=== PATIENT | female | born 1985 | race African-American/Black ===

== ENCOUNTER 2017-08-05 14:59 | Inpatient (IN) ==
--- NOTE | 2017-08-05 17:06 | Emergency Department Note ---
Arrival - Arrival Chief Complaint: Extremity Problem Stated Complaint: right leg pain ED Nursing Triage Note: Pt c/o right upper leg pain and swelling x 1.5 wks. Mode of Arrival: Ambulatory Limitations: No Limitations Source: Patient Time Seen by Provider: 08/05/17 16:50 - History of Present Illness HPI Narrative: The patient complains of right thigh swelling and pain for the past 1/2-2 weeks. She states it is become very indurated on the lateral aspect. She says she may have had a low-grade fever at dialysis today. The patient has a cold dialysis access in her right thigh but has never had swelling or pain like this before. No nausea or vomiting. She denies any cough, rhinorrhea, sore throat or other recent illness. Allergies/Adverse Reactions: Allergies Allergy/AdvReac Type Severity Reaction Status Date / Time povidone-iodine Allergy RASH Verified 07/13/17 14:25 [From Betadine] soap [From Betadine] Allergy RASH Verified 07/13/17 14:25 tramadol [From Ultram] AdvReac Abdominal Verified 07/13/17 14:25 Pain Home Medications: Home Medications Medication Instructions Recorded Confirmed Type cloNIDine TAB [Catapres Tab] 0.3 mg PO TID 05/11/15 07/13/17 History Calcium Acetate [Phoslo] 2,001 mg PO TID W/MEALS 05/14/15 07/13/17 History ALPRAZolam [Alprazolam] 1 mg PO BID 07/27/16 07/13/17 History Calcium Acetate [Calcium Acetate] 1,334 mg PO WITH SNACKS 07/13/17 07/13/17 History Carvedilol [Coreg] 6.25 mg PO BID 07/13/17 07/13/17 History Ciprofloxacin Tab [Cipro Tab] 500 mg PO Q12HR 10 Days 07/13/17 Rx Quetiapine Fumarate 100 mg PO BEDTIME 07/13/17 07/13/17 History metroNIDAZOLE TAB [Flagyl Tab] 500 mg PO TID 10 Days 07/13/17 Rx Review of System - Review of System 12 point system: reviewed and no additional remarkable complaints except as stated - Review of System Constitutional: Present: fever (Possible "low-grade") Head/Ears/Nose/Throat: Absent: nasal drainage, sore throat Respiratory: Absent: cough Cardiovascular: Absent: chest pain Gastrointestinal: Absent: abdominal pain, nausea, vomiting Musculoskeletal: Present: leg pain Skin: Present: change in color Medical,Surgical,& Family Hx - Medical History Cardio: History of: Hypertension Psychological: History of: Anxiety Disorders Renal: History of: Dialysis (MWF), Renal Failure Gastrointestinal: History of: Gastrointestinal Bleed, GI Problems (Pain after eating and food not digesting) Hematology: History of: Anemia - Surgical History HEENT Surgeries: Surgical HX of: Thyroid Surgery, Tonsilectomy & Adenoidectomy Abdominal Surgeries: Surgical HX of: Abdominal Surgery (PT STATES " HAD 1 FT INTESTINES TAKEN OUT IN 2013"), Cholecystectomy, Colonoscopy Orthopedic Surgeries: Surgical HX of;: Implanted Devices (Left arm FISTULA), Orthopedic Surgery (" TENDON REPAIR 2009 1ST SURGERY, LAST SURGERY 2012") - Family History Family History: Reports;: Family Diabetes (MOTHER, FATHER, BROTHER), Family Hypertension (FATHER) - Social History Smoking Status: Current every day smoker Exam Physical Examination: GENERAL: Alert. No acute distress. HEENT: Normocephalic and atraumatic. There is no nasal drainage. No pharyngeal erythema or exudate. NECK: Normal inspection. Supple. No lymphadenopathy or meningismus. LUNGS: No respiratory distress. Clear to auscultation bilaterally, no wheezes, rales or rhonchi. HEART: Regular tachycardia around 120 with 1 out of 6 systolic murmur. Chest: Left upper chest dialysis catheter. No erythema, tenderness or drainage. ABDOMEN: Soft, nontender and nondistended with normoactive bowel sounds. BACK: Normal inspection. SKIN: Color normal. Warm and dry. EXTREMITIES: There is an increased diameter of the right thigh compared to the left. The lateral aspect is very tender with some induration and hyperpigmentation with scaling. There is also some tenderness anteriorly and posteriorly. There is a medial upper right thigh graft with good pulse and thrill. This is not tender or indurated. The calf is nontender or swollen. There is some scaling and hyperpigmentation of the right foot but it is distally neurovascularly intact and nontender. NEUROLOGICAL/PSYCHIATRIC: Alert and oriented -3 with normal mood and affect. Cranial nerves normal. No motor or sensory deficit. Vital Signs: Vital Signs Temperature 98.3 F 08/05/17 15:06 Pulse Rate 140 H 08/05/17 15:06 Respiratory Rate 18 08/05/17 15:06 Blood Pressure 151/81 08/05/17 15:06 O2 Sat by Pulse Oximetry 100 08/05/17 15:06 Course - Reevaluation(s) Reevaluation #1: Ultrasound shows no evidence of abscess or DVT. The patient's white count is normal and she is afebrile. There is a question of whether she was febrile at dialysis. The patient states that the dialysis nurse told her to come here because she had a fever. I believe she has cellulitis of the right thigh. I have discussed the patient with the hospitalist service who will see her and admit. Time: 20:05 Results - Labs CBC & BMP: 08/05/17 17:13 08/05/17 17:31 Lab Results: I have reviewed the patients labs Labs: Laboratory Tests 08/05/17 17:31 INR 1.1 - Impressions Ultrasound showed no evidence of DVT. No evidence of abscess but there was significant soft tissues edema in the thigh. Chest x-ray shows:1. Interval central venous catheter placement as described 2. Slight increase in the overall interstitial pattern, could not exclude some degree of underlying edema Disposition Clinical Impression: Cellulitis, Chronic kidney disease with end stage renal failure on dialysis, Anemia, Tachycardia Case discussed with: patient Disposition: Still a Patient Condition: Stable Time of Disposition: 20:05
--- NOTE | 2017-08-05 17:23 | Order Completion Report ---
See report scanned to EMR
[2017-08-05 17:44] LABS: Basophils % 0.5 % (0.0-0.8); Eosinophils # 0.3 10*3/uL (0.0-0.87); Eosinophils % 3.9 % (0.00-10.9); Hematocrit 29.8 VOL% (35.7-47.0); Hemoglobin 9.8 GM/DL (12.0-16.0); Immature Granulocytes % 0.5 %; Immature Granulocytes Absolute 0.03 #; Lymphocytes # 1.2 10*3/uL (1.4-4.0); Lymphocytes % 18.5 % (21.3-54.2); Mean Corpuscular HGB Conc 32.9 GM/DL (32-36); Mean Corpuscular Hemoglobin 31 PG (27-34); Mean Corpuscular Volume 93.7 FL (87-102); Mean Platelet Volume 11.3 FL (9.6-12.0); Monocytes # 0.6 10*3/uL (0.11-0.8); Monocytes % 9.6 % (1.7-12.7); Neutrophils # 4.3 10*3/uL (1.4-7.4); Platelet Count 149 T/CUMM (130-400); Red Blood Count 3.18 MC/CUMM (3.8-5.5); Red Cell Distribution Width 17.6 % (9.3-17.3); White Blood Count 6.4 T/CUMM (4-12)
[2017-08-05 17:54] LABS: INR 1.1; PT Patient Result 11.3 SECS
[2017-08-05 18:04] LABS: Calcium 9.1 MG/DL (8.5-10.1); Osmolality,Calculated 275.8 MOS/KG (273-304); Potassium 4.4 MMOL/L (3.5-5.1)
--- NOTE | 2017-08-05 18:46 | XRay Report ---
Portable chest Exam date: 08/05/2017 5: 17 PM Indication: Shortness of breath, cough Comparison: December 27, 2015 Findings: Cardiomediastinal contours are stable with underlying cardiomegaly. Central venous catheter placed with distal tip overlying the superior mediastinum at midline. Slight increased interstitial pattern. No acute osseous abnormalities. Visualized upper abdomen demonstrates no acute pathology. Impression: 1. Interval central venous catheter placement as described 2. Slight increase in the overall interstitial pattern, could not exclude some degree of underlying edema PROCEDURE INTERPRETED AT [facility] DEPARTMENT OF RADIOLOGY Final Report Signed by: Lc Chaney MD
--- NOTE | 2017-08-05 19:13 | Ultrasound Report ---
Exam: US venous doppler LE RT Indication: Pain and swelling Date: 08/05/2017 3:09 PM Technique: Chaney scale Doppler with color flow with spectral broadening was performed in routine fashion of the lower extremities per routine protocol Findings: The right common femoral, superficial femoral, popliteal and proximal saphenous saphenous veins are patent with normal waveform phasicity and augmentation as well as complete vessel compressibility. There is no evidence of popliteal or Jones's cyst. Dialysis catheter in place. Mild superficial edema within the right mid thigh. Impression: No evidence of deep venous thrombosis within right lower extremity Ultrasound images were captured and stored. PROCEDURE INTERPRETED AT [facility] DEPARTMENT OF RADIOLOGY Final Report Signed by: Lc Chaney MD
[2017-08-05 19:47] LABS: Hypochromasia Slight; Platelet Estimate Normal
[2017-08-05] MEDS ORDERED: CLINDAMYCIN INJ 600 MG in PREMIX 1 EACH IV STA (20:01)
[2017-08-05] MEDS ORDERED: ONDANSETRON 4 MG/2 ML VIAL IV PRN (20:40)
--- NOTE | 2017-08-05 22:38 | Hospitalist History & Physical ---
Assessment and Plan - Time spent with patient Time spent with patient: Greater than 30 minutes (1) Cellulitis Status: Acute Assessment and plan: Admit to hospitalist services. Clindamycin given in ED. Continue antibiotic therapy with Teflaro 200 mg IV Q12 hours. Blood cultures drawn in ED; follow. Current Visit: Yes (2) Anemia Status: Chronic Assessment and plan: H/H 9.8/29.8 Stable and asymptomatic. Repeat CBC in a.m. Current Visit: Yes (3) Tachycardia Status: Chronic Assessment and plan: HR was 140 in the ED. Evaluation of past chart shows that she is almost always tachycardic. She takes Coreg to manage; continue. Current Visit: Yes (4) ESRD on hemodialysis Status: Acute Assessment and plan: Consult Nephrology. Current Visit: No (5) Hypertension Status: Chronic Assessment and plan: Continue home medications. Monitor. Current Visit: No (6) DVT prophylaxis Status: Acute Assessment and plan: Bilateral SCDs. Current Visit: Yes History of Present Illness Chief complaint: Right thigh swelling History of present illness: Ms. Eddy is a 32 year old female with a past medical history of ESRD on hemodialysis, hypertension, anxiety, paroxsymal palpitations, and GI bleed who presented to the ED tonight with complaints of right thigh swelling and pain x 1 -2 weeks. She reports that she had a low-grade fever while at dialysis today, and they told her to go to the ER. She also complains of associated chills but denies nausea or vomiting. Labs in the ED were significant for WBC 6.4, H/H 9.8/ 29.8, Cl 97, BUN 25, and Creatinine 11.1. She was afebrile but tachycardic with a rate of 140 on presentation. US of the leg was negative for DVT and showed mild superficial edema within the right mid thigh. Currently, she is resting comfortably, without complaint. Hospitalist were consulted, and the patient will be admitted for further evaluation and treatment. Home medications were reviewed and reconciled. This patient is a full code. Home Medications Medication Instructions Recorded Confirmed Type cloNIDine TAB [Catapres Tab] 0.3 mg PO TID 05/11/15 08/05/17 History Calcium Acetate [Phoslo] 2,001 mg PO TID W/MEALS 05/14/15 08/05/17 History ALPRAZolam [Alprazolam] 1 mg PO BID 07/27/16 08/05/17 History Carvedilol [Coreg] 6.25 mg PO BID 07/13/17 08/05/17 History Quetiapine Fumarate 100 mg PO BEDTIME 07/13/17 08/05/17 History Allergies Allergy/AdvReac Type Severity Reaction Status Date / Time povidone-iodine Allergy RASH Verified 07/13/17 14:25 [From Betadine] soap [From Betadine] Allergy RASH Verified 07/13/17 14:25 tramadol [From Ultram] AdvReac Abdominal Verified 07/13/17 14:25 Pain Medical,Surgical,& Family Hx - Medical History Cardio: History of: Hypertension Psychological: History of: Anxiety Disorders Renal: History of: Dialysis (MWF), Renal Failure Gastrointestinal: History of: Gastrointestinal Bleed, GI Problems (Pain after eating and food not digesting) Hematology: History of: Anemia - Surgical History Neurologic Surgeries: Patient denies: Neurologic Surgery HEENT Surgeries: Surgical HX of: Thyroid Surgery, Tonsilectomy & Adenoidectomy Abdominal Surgeries: Surgical HX of: Abdominal Surgery (PT STATES " HAD 1 FT INTESTINES TAKEN OUT IN 2013"), Cholecystectomy, Colonoscopy Reproductive Surgeries: Patient denies;: Gynecologic Surgery Orthopedic Surgeries: Surgical HX of;: Implanted Devices (Left arm FISTULA), Orthopedic Surgery (" TENDON REPAIR 2009 1ST SURGERY, LAST SURGERY 2012") - Family History Family History: Reports;: Family Cancer (Father-prostate CA), Family Diabetes ( MOTHER, FATHER, BROTHER), Family Hypertension (FATHER) - Social History Smoking Status: Current every day smoker (1/2 ppd) Have you smoked in the last 12 months: Yes Time spent discussing smoking cessation with patient: 3 to 10 minutes (3 minutes were spent discussing smoking cessation with the patient.) Frequency of Alcohol Use: None Type of Drug Use: None Marital Status: Single Lives With:: Alone Functional capacity: independent ambulation 12 point system: reviewed and no additional remarkable complaints except as stated - Constitutional Constitutional: Present: chills, fever(s). Absent: headache(s), malaise, weakness - EENT Eyes: Absent: blurry vision, diplopia, loss of vision Ears: Absent: decreased hearing, ear discharge, ear pain Nose, mouth and throat: Absent: headache(s), nasal congestion, sore throat - Cardiovascular Cardiovascular: Present: edema, palpitations. Absent: chest pain at rest, dyspnea, orthopnea - Respiratory Respiratory: Absent: cough, dyspnea, wheezing - Gastrointestinal Gastrointestinal: Absent: abdominal pain, constipation, diarrhea, nausea, vomiting - Genitourinary Genitourinary: Absent: dysuria, flank pain, urinary frequency - Musculoskeletal Musculoskeletal: Absent: arthralgias, joint swelling, muscle weakness, myalgias - Neurological Neurological: Absent: confusion, dizziness, numbness, paresthesias, syncope - Psychiatric Psychiatric: Present: anxiety. Absent: depression - Endocrine Endocrine: Absent: cold intolerance, polydipsia, polyphagia, polyuria - Hematologic/Lymphatic Hematologic/Lymphatic: Absent: easy bleeding, easy bruising Exam - Constitutional Vitals: Period Temp Pulse Resp BP Sys/Owusu Pulse Ox Last 24 Hr 98.3 F-98.3 F 114-140 18-22 92-151/55-81 96-100 Exam: Constitutional System: Afebrile. Awake, alert, and oriented x 3. No distress. No tremulousness. Head: Normocephalic, atraumatic. Ears, Nose and Throat System: No pain or tenderness. No epistaxis or discharge Eyes System: Pupils equal, round, and reactive. Extraocular muscles intact. Neck: Supple, without adenopathy, No jugular venous distention. No thyromegaly, neck mass, or prior surgery apparent. Respiratory System: Chest clear to auscultation. Cardiovascular System: Heart with regular rate and rhythm. Systolic murmur. GI System: Abdomen soft, nontender. Normo active bowel sounds present. Musculoskeletal System: Lateral induration, warmth, and tenderness of right thigh. Limbs with no pedal edema. Full distal pulses. Normal capillary refill. Neurological System: No discernable sensory deficit. No aphasia Psychiatric System: Conversation is rational Results - Labs CBC & BMP: 08/05/17 17:13 08/05/17 17:31 Lab Results: I have reviewed the past 24 hour labs - Diagnostic Findings Procedure: Ultrasound: report reviewed by me Quality Measures - VTE Contraindication to Pharmacological VTE Prophylaxis: High Risk of Bleeding
[2017-08-06] MEDS: QUEtiapine 100 MG TABLET PO SCH ×2 (00:48→21:14)
[2017-08-06] MEDS: ALPRAZolam 0.5 MG TABLET PO SCH ×3 (00:48→21:15)
[2017-08-06] MEDS: CARVEDILOL 6.25 MG TABLET PO SCH ×3 (00:48→21:14)
[2017-08-06] MEDS: CEFTAROLINE 200 MG in SODIUM CHLORIDE 0.9% 100 ML IV SCH ×2 (02:59→11:17)
[2017-08-06 07:15] LABS: Basophils % 0.5 % (0.0-0.8); Eosinophils # 0.4 10*3/uL (0.0-0.87); Eosinophils % 6.1 % (0.00-10.9); Hematocrit 26.4 VOL% (35.7-47.0); Hemoglobin 8.7 GM/DL (12.0-16.0); Immature Granulocytes % 0.2 %; Immature Granulocytes Absolute 0.01 #; Lymphocytes # 1.4 10*3/uL (1.4-4.0); Lymphocytes % 22.2 % (21.3-54.2); Mean Corpuscular Hemoglobin 31 PG (27-34); Mean Corpuscular Volume 94.3 FL (87-102); Mean Platelet Volume 11.3 FL (9.6-12.0); Monocytes # 0.8 10*3/uL (0.11-0.8); Monocytes % 12.8 % (1.7-12.7); Neutrophils # 3.7 10*3/uL (1.4-7.4); Neutrophils % 58.2 % (38.7-73.9); Platelet Count 163 T/CUMM (130-400); Red Cell Distribution Width 17.4 % (9.3-17.3); White Blood Count 6.4 T/CUMM (4-12)
[2017-08-06 07:47] LABS: Alanine Aminotransferase < 9 U/L (13-56); Albumin 2.8 G/DL (3.4-5.0); Alkaline Phosphatase 125 U/L (45-117); Aspartate Amino Transferase 10 U/L (0-37); Blood Urea Nitrogen 35 MG/DL (7-18); Calcium 8.4 MG/DL (8.5-10.1); Glucose 98 MG/DL (74-106); Magnesium 2.3 MG/DL (1.8-2.4); Osmolality,Calculated 284.5 MOS/KG (273-304); Potassium 4.2 MMOL/L (3.5-5.1); Sodium 139 MMOL/L (136-145); Total Protein 6.6 G/DL (6.4-8.3)
[2017-08-06] MEDS: CALCIUM ACETATE 667 MG CAPSULE PO SCH ×4 (07:56→21:14)
[2017-08-06] MEDS ORDERED: HYDROmorphone 2 MG/1 ML VIAL IV PRN ×2 (08:31)
--- NOTE | 2017-08-06 12:17 | Hospitalist Progress Note ---
Assessment and Plan (1) Pain in right thigh Status: Acute Assessment and plan: The patient has symptoms which might be calciphylaxis. I will coordinate care with Dr. Lala. Current Visit: Yes (2) Chronic kidney disease with end stage renal failure on dialysis Status: Chronic Current Visit: Yes (3) Noncompliance of patient with renal dialysis Status: Chronic Current Visit: No Hospitalist: Subjective Interval history: The patient is admitted hospital with painful tenderness of the right thigh along the outer margin. There is no evidence of induration and this reminds me of patients are seen with calciphylaxis. Exam - Constitutional Vitals: Period Temp Pulse Resp BP Sys/Owusu Pulse Ox Last 24 Hr 97.1 F-98.3 F 93-140 18-22 92-151/42-81 92-100 Exam: Constitutional System: [Mild] distress. [No] tremulousness. The patient has a functional dialysis catheter in the left chest. A left upper arm shunt is maturing. Head: Normocephalic, atraumatic. Ears, Nose and Throat System: No evidence of Otitis or Mastoiditis. No epistaxis or discharge Eyes System: Pupils equal, round, and reactive. Extraocular muscles intact. Neck: Supple, without adenopathy, [No] jugular venous distention. No thyromegaly, neck mass, or prior surgery apparent. Respiratory System: Chest [clear] to auscultation. Cardiovascular System: Heart with [regular] rate and rhythm. [No] murmur. GI System: Abdomen [soft], [non]tender. [Normo]active bowel sounds present. Musculoskeletal System: the patient has an old shunt in the anterior right thigh. The patient has tenderness and some melanosis of the right external thigh consistent with calciphylaxis Results - Labs CBC & BMP: 08/06/17 06:24 08/06/17 06:24 Lab Results: I have reviewed the past 24 hour labs Quality Measures - VTE Contraindication to Pharmacological VTE Prophylaxis: High Risk of Bleeding
--- NOTE | 2017-08-06 22:40 | Nephrology Consult Note ---
History of Present Illness Chief complaint: ESRD History of present illness: Ms. Eddy is a 32 year old female with multiple chronic medical problems including ESRD. She presented with pain in her right thigh. No documented fever at dialysis. Painful area is right lateral thigh. She has a poorly functioning fistula medial right thigh. Home Medications Medication Instructions Recorded Confirmed Type cloNIDine TAB [Catapres Tab] 0.3 mg PO TID 05/11/15 08/05/17 History Calcium Acetate [Phoslo] 2,001 mg PO TID W/MEALS 05/14/15 08/05/17 History ALPRAZolam [Alprazolam] 1 mg PO BID 07/27/16 08/05/17 History Carvedilol [Coreg] 6.25 mg PO BID 07/13/17 08/05/17 History Quetiapine Fumarate 100 mg PO BEDTIME 07/13/17 08/05/17 History Allergies Allergy/AdvReac Type Severity Reaction Status Date / Time povidone-iodine Allergy RASH Verified 07/13/17 14:25 [From Betadine] soap [From Betadine] Allergy RASH Verified 07/13/17 14:25 tramadol [From Ultram] AdvReac Abdominal Verified 07/13/17 14:25 Pain Medical,Surgical,& Family Hx - Medical History Cardio: History of: Hypertension Psychological: History of: Anxiety Disorders Neurology: No history of: Seizures Renal: History of: Dialysis (MWF), Renal Failure Gastrointestinal: History of: Gastrointestinal Bleed, GI Problems (Pain after eating and food not digesting) Hematology: History of: Anemia - Surgical History Neurologic Surgeries: Patient denies: Neurologic Surgery HEENT Surgeries: Surgical HX of: Thyroid Surgery, Tonsilectomy & Adenoidectomy Patient denies: Eye Surgery Abdominal Surgeries: Surgical HX of: Abdominal Surgery (PT STATES " HAD 1 FT INTESTINES TAKEN OUT IN 2013"), Cholecystectomy, Colonoscopy Patient denies: EGD Reproductive Surgeries: Patient denies;: Gynecologic Surgery Orthopedic Surgeries: Surgical HX of;: Implanted Devices (Left arm FISTULA), Orthopedic Surgery (" TENDON REPAIR 2009 SURGERY, LAST SURGERY 2012") - Family History Family History: Reports;: Family Cancer (Father-prostate CA), Family Diabetes ( MOTHER, FATHER, BROTHER), Family Hypertension (FATHER) - Social History Smoking Status: Current every day smoker (1/2 ppd) Frequency of Alcohol Use: None Type of Drug Use: None Review of Systems 12 point system: reviewed and no additional remarkable complaints except as stated Exam - Vital Signs Vital signs: Period Temp Pulse Resp BP Sys/Owusu Pulse Ox Last 24 Hr 97.1 F-98.1 F 92-118 18-18 99-129/42-71 92-100 Exam: Gen.: Alert and oriented x3. ENT: Pupils equal round reactive to light. EOMs intact. Mucous membranes moist. Neck: Supple. No JVD or bruit. Cardiovascular: Regular rate and rhythm. No murmur rub or gallop Lungs: Clear Abdomen: Soft. Nontender. Positive bowel sounds. No organomegaly Extremities: Skin over right thigh is thickened and tender to touch. No increased warmth. No fluctuance Results - Labs CBC & BMP: 08/06/17 06:24 08/06/17 06:24 Assessment and Plan (1) Chronic kidney disease with end stage renal failure on dialysis Status: Chronic Assessment and plan: 32-year-old woman with: * ESRD. Dialysis tomorrow * Painful right thigh this does not appear to be cellulitis. 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 She is afebrile and white cell count is normal. * Hypertension * PSVT * Secondary hyperparathyroidism. Status post parathyroidectomy Current Visit: Yes (2) Paroxysmal SVT (supraventricular tachycardia) Status: Acute Current Visit: Yes (3) Pain in right thigh Status: Acute Current Visit: Yes (4) Anemia Status: Chronic Current Visit: Yes (5) Hypertension Status: Chronic Current Visit: No
[2017-08-07] MEDS: CEFTAROLINE 200 MG in SODIUM CHLORIDE 0.9% 100 ML IV SCH ×2 (00:55→14:04)
[2017-08-07 06:55] LABS: Calcium 8.6 MG/DL (8.5-10.1); Magnesium 2.2 MG/DL (1.8-2.4); Osmolality,Calculated 287.5 MOS/KG (273-304); Phosphorous 7.1 MG/DL (2.5-4.9); Potassium 4.5 MMOL/L (3.5-5.1)
[2017-08-07] MEDS ORDERED: HEPARIN 10,000 UNIT/10 ML VIAL IV PRN (11:42)
--- NOTE | 2017-08-07 11:58 | Hospitalist Progress Note ---
Assessment and Plan (1) Pain in right thigh Status: Acute Assessment and plan: The patient has symptoms which are consistent with calciphylaxis. I coordinated care with Dr. Lala. Current Visit: Yes (2) Chronic kidney disease with end stage renal failure on dialysis Status: Chronic Current Visit: Yes (3) Noncompliance of patient with renal dialysis Status: Chronic Current Visit: No Hospitalist: Subjective Interval history: Mrs. Tucker has dialysis today. Her leg continues to have pain on the right lateral portion of the thigh. 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 Exam - Constitutional Vitals: Period Temp Pulse Resp BP Sys/Owusu Pulse Ox Last 24 Hr 97.4 F-98.7 F 88-97 18-20 92-129/50-71 93-100 Exam: Constitutional System: [Mild] distress. [No] tremulousness. The patient has a functional dialysis catheter in the left chest. A left upper arm shunt is maturing. Head: Normocephalic, atraumatic. Ears, Nose and Throat System: No evidence of Otitis or Mastoiditis. No epistaxis or discharge Eyes System: Pupils equal, round, and reactive. Extraocular muscles intact. Neck: Supple, without adenopathy, [No] jugular venous distention. No thyromegaly, neck mass, or prior surgery apparent. Respiratory System: Chest [clear] to auscultation. Cardiovascular System: Heart with [regular] rate and rhythm. [No] murmur. GI System: Abdomen [soft], [non]tender. [Normo]active bowel sounds present. Musculoskeletal System: the patient has an old shunt in the anterior right thigh. The patient has tenderness and some melanosis of the right external thigh consistent with calciphylaxis Results - Labs CBC & BMP: 08/06/17 06:24 08/07/17 05:37 Lab Results: I have reviewed the past 24 hour labs Labs: Calcium is 8.6 and phosphorus 7.1 Quality Measures - VTE Contraindication to Pharmacological VTE Prophylaxis: High Risk of Bleeding
[2017-08-07] MEDS: CALCIUM ACETATE 667 MG CAPSULE PO SCH ×3 (12:50→16:59)
[2017-08-07] MEDS: ALPRAZolam 0.5 MG TABLET PO SCH ×2 (12:53→21:16)
[2017-08-07] MEDS: CARVEDILOL 6.25 MG TABLET PO SCH ×2 (12:54→21:15)
--- NOTE | 2017-08-07 15:11 | Event Note ---
I was asked to evaluate the patient by Dr. Lala to look at her right lateral thigh. She states that for several weeks she has had a painful area over the lateral thigh. She is a long-term dialysis patient has had previous parathyroidectomy. This is unrelated to her graft. She has no tenderness or signs of infection of her graft. This is well away from her graft at the lateral thigh and measures about 10 x 20 cm in total. It is tender but not erythematous or warm. This looks suspicious for calciphylaxis. We will get an incisional biopsy of this tomorrow in the operating room. The procedure and risk of been explained and she wishes to proceed.
--- NOTE | 2017-08-07 17:53 | Nephrology Progress Note ---
Nephrology - PN: Subj Interval history: No shortness of breath. No GI symptoms. She has been afebrile Exam (PN)-Nephrology - Vital Signs Vital signs: Period Temp Pulse Resp BP Sys/Owusu Pulse Ox Last 24 Hr 97.4 F-98.7 F 88-102 18-20 92-114/42-55 93-100 Exam: Gen.: Alert and oriented x3. ENT: Pupils equal round reactive to light. EOMs intact. Mucous membranes moist. Neck: Supple. No JVD or bruit. Cardiovascular: Regular rate and rhythm. No murmur rub or gallop Lungs: Clear Abdomen: Soft. Nontender. Positive bowel sounds. No organomegaly Extremities: No change in right leg exam - Lab 08/06/17 06:24 08/07/17 05:37 Most recent lab results Calcium 8.6 MG/DL (8.5-10.1) 08/07/17 05:37 Phosphorus 7.1 MG/DL (2.5-4.9) H 08/07/17 05:37 Magnesium 2.2 MG/DL (1.8-2.4) 08/07/17 05:37 Assessment and Plan (1) Chronic kidney disease with end stage renal failure on dialysis Status: Chronic Assessment and plan: 32-year-old woman with: * ESRD. Stable during dialysis * Painful right thigh this does not appear to be cellulitis. 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 She is afebrile and white cell count is normal. I discussed her case with Dr. Lóepz. She is to have a biopsy tomorrow * Hypertension * PSVT * Secondary hyperparathyroidism. Status post parathyroidectomy Current Visit: Yes (2) Paroxysmal SVT (supraventricular tachycardia) Status: Acute Current Visit: Yes (3) Pain in right thigh Status: Acute Current Visit: Yes (4) Anemia Status: Chronic Current Visit: Yes (5) Hypertension Status: Chronic Current Visit: No
[2017-08-07] MEDS: QUEtiapine 100 MG TABLET PO SCH (21:16)
[2017-08-07] MEDS: ACETAMINOPHEN 325 MG TABLET PO PRN (21:20)
[2017-08-08] MEDS: CALCIUM ACETATE 667 MG CAPSULE PO SCH ×3 (08:31→16:58)
[2017-08-08] MEDS ORDERED: PROPOFOL 200 MG/20 ML VIAL IV ONE (09:00)
[2017-08-08] MEDS ORDERED: GLYCOPYRROLATE 0.4 MG/2 ML VIAL ONE (09:00)
[2017-08-08] MEDS ORDERED: ONDANSETRON 4 MG/2 ML VIAL ONE (09:00)
[2017-08-08] MEDS ORDERED: LIDOCAINE 100 MG/5 ML SYRINGE ONE (09:00)
--- NOTE | 2017-08-08 10:42 | Operative Note ---
Date of procedure: 08/08/17 Pre-op diagnosis: Subcutaneous mass right lateral thigh Post-op diagnosis: same Procedure: Incisional biopsy right lateral thigh mass Findings and technique: After informed consent was obtained patient brought the operating room and placed in supine position. After IV sedation was administered the patient's right thigh was prepped and draped in usual sterile fashion. The indistinct area which covers about 20 cm of the lateral thigh was palpated local anesthesia infiltrated elliptical incision was made so that it included some overlying skin. Sharp dissection was carried down the subcutaneous layer which was firm but not necrotic or purulent or infected appearing. There was no purulence to culture. Good specimen of subcutaneous tissue was removed about 3 cm in size. The wound was then closed with interrupted 3-0 nylon suture. Anesthesia: MAC, local Surgeon / Physician: Dudley López III. Estimated blood loss: minimal Specimens: other (Skin and subcutaneous tissue) Condition: stable Disposition: PACU Results - Labs CBC & BMP: 08/06/17 06:24 08/07/17 05:37 Discharge Plan - Discharge Medications No Action cloNIDine TAB [Catapres Tab] 0.3 mg PO TID Calcium Acetate [Phoslo] 2,001 mg PO TID W/MEALS ALPRAZolam [Alprazolam] 1 mg PO BID Carvedilol [Coreg] 6.25 mg PO BID Quetiapine Fumarate 100 mg PO BEDTIME - Follow Up or Referral - Forms/Instructions
--- NOTE | 2017-08-08 11:05 | Anesthesia Post-Op ---
Anesthesia Post OP - Post Ansesthetic Evaluation Patient seen in post op: Yes Resp: within normal limits CV: within normal limits Mental: within normal limits Temp: within normal limits [id number]-[id number]: within normal limits Nausea and Vomiting: within normal limits Pain: within normal limits
[2017-08-08] MEDS ORDERED: KETAMINE 500 MG/10 ML VIAL ONE (11:07)
[2017-08-08] MEDS ORDERED: MIDAZOLAM 2 MG/2 ML VIAL ONE (11:07)
[2017-08-08] MEDS ORDERED: fentaNYL 100 MCG/2 ML VIAL ONE (11:07)
[2017-08-08] MEDS ORDERED: HYDROmorphone 2 MG/1 ML VIAL IV PRN (11:13)
[2017-08-08] MEDS ORDERED: ONDANSETRON 4 MG/2 ML VIAL IV PRN (11:13)
[2017-08-08] MEDS ORDERED: SODIUM CHLORIDE 0.9% 250 ML IV SCH (11:30)
[2017-08-08] MEDS: ALPRAZolam 0.5 MG TABLET PO SCH ×2 (12:38→21:02)
[2017-08-08] MEDS: CARVEDILOL 6.25 MG TABLET PO SCH ×2 (12:38→21:03)
[2017-08-08] MEDS: ACETAMINOPHEN 325 MG TABLET PO PRN (15:08)
--- NOTE | 2017-08-08 15:41 | Nephrology Progress Note ---
Nephrology - PN: Subj Interval history: She just underwent biopsy of her right thigh. She tolerated this well. She denies shortness of breath. Exam (PN)-Nephrology - Vital Signs Vital signs: Period Temp Pulse Resp BP Sys/[place] Pulse Ox Last 24 Hr 97.1 F-98.5 F 14-127 14-23 70-121/32-69 94-100 Exam: ENT: Normal Cardiovascular: Regular rate and rhythm. No murmur rub or gallop Lungs: Clear Extremities: 1+ edema - Lab 08/06/17 06:24 08/07/17 05:37 Most recent lab results Calcium 8.6 MG/DL (8.5-10.1) 08/07/17 05:37 Phosphorus 7.1 MG/DL (2.5-4.9) H 08/07/17 05:37 Magnesium 2.2 MG/DL (1.8-2.4) 08/07/17 05:37 Assessment and Plan (1) Chronic kidney disease with end stage renal failure on dialysis Status: Chronic Assessment and plan: 32-year-old woman with: * ESRD. Dialysis tomorrow * Painful right thigh this does not appear to be cellulitis. 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 Biopsy done today * Hypertension * PSVT * Secondary hyperparathyroidism. Status post parathyroidectomy Current Visit: Yes (2) Paroxysmal SVT (supraventricular tachycardia) Status: Acute Current Visit: Yes (3) Pain in right thigh Status: Acute Current Visit: Yes (4) Anemia Status: Chronic Current Visit: Yes (5) Hypertension Status: Chronic Current Visit: No
--- NOTE | 2017-08-08 16:00 | Hospitalist Progress Note ---
Assessment and Plan (1) Pain in right thigh Status: Acute Assessment and plan: The patient has symptoms which are consistent with calciphylaxis. I coordinated care with Dr. Lala. I anticipate discharge home tomorrow following her dialysis therapy. Current Visit: Yes (2) Chronic kidney disease with end stage renal failure on dialysis Status: Chronic Current Visit: Yes (3) Noncompliance of patient with renal dialysis Status: Chronic Current Visit: No Hospitalist: Subjective Interval history: The patient continues to have right thigh pain. It is somewhat better than yesterday. The patient had surgical biopsy of the right thigh where we believe she may have calciphylaxis. Exam - Constitutional Vitals: Period Temp Pulse Resp BP Sys/[place]u Pulse Ox Last 24 Hr 97.1 F-98.5 F 14-127 14-23 70-121/32-69 94-100 Exam: Constitutional System: [Mild] distress. [No] tremulousness. The patient has a functional dialysis catheter in the left chest. A left upper arm shunt is maturing. Head: Normocephalic, atraumatic. Ears, Nose and Throat System: No evidence of Otitis or Mastoiditis. No epistaxis or discharge Eyes System: Pupils equal, round, and reactive. Extraocular muscles intact. Neck: Supple, without adenopathy, [No] jugular venous distention. No thyromegaly, neck mass, or prior surgery apparent. Respiratory System: Chest [clear] to auscultation. Cardiovascular System: Heart with [regular] rate and rhythm. [No] murmur. GI System: Abdomen [soft], [non]tender. [Normo]active bowel sounds present. Musculoskeletal System: the patient has an old shunt in the anterior right thigh. The patient has tenderness and some melanosis of the right external thigh consistent with calciphylaxis Results - Labs CBC & BMP: 08/06/17 06:24 08/07/17 05:37 Lab Results: I have reviewed the past 24 hour labs Quality Measures - VTE Contraindication to Pharmacological VTE Prophylaxis: High Risk of Bleeding
[2017-08-08] MEDS: QUEtiapine 100 MG TABLET PO SCH (21:03)
[2017-08-09 07:07] VITALS: BP 79/50
[2017-08-09] MEDS: CALCIUM ACETATE 667 MG CAPSULE PO SCH ×2 (09:19→14:29)
[2017-08-09] MEDS: ALPRAZolam 0.5 MG TABLET PO SCH (09:20)
[2017-08-09] MEDS: ACETAMINOPHEN 325 MG TABLET PO PRN (09:20)
[2017-08-09] MEDS: CARVEDILOL 6.25 MG TABLET PO SCH (09:26)
[2017-08-09] MEDS ORDERED: HEPARIN 10,000 UNIT/10 ML VIAL IV SCH (10:30)
--- NOTE | 2017-08-09 13:16 | Discharge Summary ---
Hospital Course - Hospital Course Hospital Course: The patient was admitted to the hospital with right thigh pain. Her initial diagnosis was cellulitis but the patient was noted to have features consistent with calciphylaxis. We had consultation with staff technologist and general surgeon. The patient had a high calcium phosphorus product and has had difficulty with compliance on phosphate binders as an outpatient. The patient had biopsy of the right thigh subcutaneous tissue and pathology is pending at the time of discharge. The patient had dialysis prior to discharge home. On the date of discharge, chest clear and abdomen soft. Heart has regular rate and rhythm. Patient medications were reconciled upon admission, and again at the time of discharge. The patient was screened for tobacco use and found to be a [occasional smoker]. The patient was given 4 minutes of tobacco avoidance education. The patient's medical decsion maker is [themself], and when asked, they asked to be [Full code]. Discharge Time was 28 minutes, including final examination, evaluation and planning, education, reconciliation of medications, writing prescriptions, coordinating care with rifle case repairer, and preparing discharge documentation. - Time spent with patient Time with patient DS: Less than 30 minutes Time spent discussing smoking cessation with patient: 3 to 10 minutes (4 min) Diagnosis - Discharge Diagnosis (1) Pain in right thigh Status: Chronic (2) Chronic kidney disease with end stage renal failure on dialysis Status: Chronic (3) Noncompliance of patient with renal dialysis Status: Chronic Discharge Plan - Discharge Data Disposition: Disch To Home/Self Care Condition at Discharge: Stable Discharge Diet: advance to your usual diet Activity: resume usual activities as tolerated - Discharge Medications New HYDROcodone/ACETAMIN 7.5-325 [[place] 7.5-325] 1 tablet PO Q6HR #30 tablet Continue cloNIDine TAB [Catapres Tab] 0.3 mg PO TID Calcium Acetate [Phoslo] 2,001 mg PO TID W/MEALS ALPRAZolam [Alprazolam] 1 mg PO BID Carvedilol [Coreg] 6.25 mg PO BID Quetiapine Fumarate 100 mg PO BEDTIME - Follow Up or Referral - Forms/Instructions Exam - Constitutional Vitals: Period Temp Pulse Resp BP Sys/Ow[place]u Pulse Ox Last 24 Hr 97.6 F-98.5 F 89-105 16-20 79-106/40-65 93-98 Discharge Results Procedures and tests throughout hospitalization: Pending Orders 08/05/17 17:31 Blood Culture Stat 08/08/17 10:34 Tissue (Biopsy) Culture and GS Routine Labs on day of discharge: Preliminary micro results at discharge 08/05/17 17:31 Blood Culture - Preliminary Blood No growth at 3 days 08/05/17 17:31 Blood Culture - Preliminary Blood No growth at 3 days DS: Provider Date of admission: 08/05/17 20:36 Primary care physician: . No PCP Attending physician on admission: Alvaro Walsh MD Consults: 08/05/17 20:40 Consult to Physician [CONS] Routine Comment: Consulting Provider: Ruy Lala Consulting Provider Notified: Yes When should Consulting Provider be notified: Now Consult to Specialist Group: Nephrology When should Consulting Provider be notified: In am Person Notified: shea called Date Notified: 08/06/17 Time Notified: 08:35 08/07/17 14:59 Consult to Physician [CONS] Routine Comment: Consulting Provider: Dudley López III. Consulting Provider Notified: Yes When should Consulting Provider be notified: Now Person Notified: tone called Date Notified: 08/07/17 Time Notified: 15:01 Discharging clinician: Israel Lovell MD
--- NOTE | 2017-08-09 13:18 | Nephrology Progress Note ---
Nephrology - PN: Subj Interval history: Seen during dialysis. Systolic blood pressure 100. No new symptoms Exam (PN)-Nephrology - Vital Signs Vital signs: Period Temp Pulse Resp BP Sys/Ow[place]u Pulse Ox Last 24 Hr 97.6 F-98.5 F 89-105 16-20 79-106/40-65 93-98 Exam: ENT: Normal Cardiovascular: Regular rate and rhythm. No murmur rub or gallop Lungs: Clear Extremities: No edema - Lab 08/06/17 06:24 08/07/17 05:37 Most recent lab results Calcium 8.6 MG/DL (8.5-10.1) 08/07/17 05:37 Phosphorus 7.1 MG/DL (2.5-4.9) H 08/07/17 05:37 Magnesium 2.2 MG/DL (1.8-2.4) 08/07/17 05:37 Assessment and Plan (1) Chronic kidney disease with end stage renal failure on dialysis Status: Chronic Assessment and plan: 32-year-old woman with: * ESRD. 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 Biopsy pending * Hypertension. Clonidine decreased to 0.1 mg twice daily * PSVT * Secondary hyperparathyroidism. Status post parathyroidectomy Current Visit: Yes (2) Paroxysmal SVT (supraventricular tachycardia) Status: Acute Current Visit: Yes (3) Pain in right thigh Status: Chronic Current Visit: Yes (4) Anemia Status: Chronic Current Visit: Yes (5) Hypertension Status: Chronic Current Visit: No
--- NOTE | 2017-08-09 14:31 | Event Note ---
Patient is postop day day #1 status post biopsy of right lateral thigh mass. She has some localized pain which is currently controlled on oral analgesics. Her discharge is pending. The wound was inspected, and it is clean, dry and intact with sutures intact. There is no surrounding erythema edema or drainage. No wound edge necrosis is appreciated. Distally calves are soft and nontender without pedal edema. The patient is stable for discharge from a surgical standpoint. Follow-up appointment should be arranged for 10-14 days. Local wound care instructions were provided to the patient. She is encouraged to call the office with any concerns or changes in the status of her wound including increased pain, edema, erythema, or drainage. She verbally expressed understanding of these instructions.
[2017-08-09] MEDS ORDERED: cloNIDine 0.1 MG TABLET PO SCH (21:00)
--- NOTE | 2017-08-19 19:16 | Pathology Report from [facility] ---
[facility] [place] : [id number] PATIENT NAME : Lorene Diallo ORDERING DR : SHAHID BOOTH III, MD CLINICAL HX: RT thigh mass POST-OP DX: Same SPECIMEN INFO: RT thigh mass GROSS DESCRIPTION: Received fresh labeled with the patients name LORENE DIALLO and consists of a strip of brown skin with attached subcutaneous tissue measuring 1.4 x 0.4 cm excised to a depth of up to 0.5 cm. Also in the container are two hyperemic yellow-shaw fatty tissue fragments together measuring 1.6 x 0.4 cm. The skin is sectioned and all submitted in one cassette. 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 It is pauci inflammatory, where by there is ischemic granular and lipomembranous degeneration of the adipocytes in a background of chronic microangiopathic changes associated with calcium deposition within the microvasculature. In fact , the microangiopathy is reminiscent of a diabetic microangiopathy. The calcium is highlighted by the VonKossa stain. Overall the findings are compatible with calciphylaxis. Many patients with calciphylaxis have an underlying procoaguant state as a critical factor in the induction of the je forming phenotype in the vessels. The combined thrombotic and calcific microangiopathy leads to subcutaneous and overlying cutaneous ischemia. (see microscopic description). COLLECTED DATE: 08/08/2017 [facility] REPORT DATE: 08/19/2017 ELECTRONICALLY SIGNED BY: Sarah Jeff M.D. 08/19/2017 - 14:29:18 [facility]ERRichard
== END 2017-08-09 16:25 | disposition home or self-care (01) | DRG 606 ==
LOC: N.ED 14:59 → N.EDINP 20:36 → SUATTDRO 20:36 → N.3E 21:59
PROVIDERS: ADMIT Internal Medicine; ATTEND Internal Medicine

== ENCOUNTER 2017-12-09 14:11 | Inpatient (IN) ==
[2017-12-09 15:19] LABS: Basophils % 0.4 % (0.0-0.8); Eosinophils % 0.6 % (0.00-10.9); Hematocrit 26.8 VOL% (35.7-47.0); Immature Granulocytes % 0.9 %; Immature Granulocytes Absolute 0.06 #; Lymphocytes # 0.9 10*3/uL (1.4-4.0); Lymphocytes % 13.1 % (21.3-54.2); Mean Corpuscular HGB Conc 29.9 GM/DL (32-36); Mean Corpuscular Hemoglobin 28 PG (27-34); Mean Corpuscular Volume 92.4 FL (87-102); Mean Platelet Volume 10.6 FL (9.6-12.0); Monocytes # 0.9 10*3/uL (0.11-0.8); Monocytes % 12.7 % (1.7-12.7); Neutrophils # 5.1 10*3/uL (1.4-7.4); Neutrophils % 72.3 % (38.7-73.9); Platelet Count 235 T/CUMM (130-400); Red Cell Distribution Width 20.4 % (9.3-17.3)
[2017-12-09] MEDS ORDERED: ACETAMINOPHEN 325 MG TABLET ONE (15:22)
[2017-12-09] MEDS ORDERED: ACETAMINOPHEN 325 MG TABLET PO ONE (15:23)
[2017-12-09] MEDS ORDERED: guaiFENesin/DM ER 600-30 MG TABLET PO PRN (17:26)
[2017-12-09] MEDS ORDERED: DOCUSATE SODIUM 100 MG CAPSULE PO PRN (17:26)
[2017-12-09] MEDS ORDERED: ONDANSETRON 4 MG/2 ML VIAL IV PRN (17:26)
[2017-12-09] MEDS ORDERED: diphenhydrAMINE CAP 25 MG CAPSULE PO PRN (17:26)
[2017-12-09] MEDS: MORPHINE 2 MG/1 ML SYRINGE IV PRN (20:34)
[2017-12-09] MEDS: ALPRAZolam 0.5 MG TABLET PO SCH (21:38)
[2017-12-09] MEDS: QUEtiapine 100 MG TABLET PO SCH (21:38)
[2017-12-09] MEDS: CARVEDILOL 6.25 MG TABLET PO SCH (21:38)
[2017-12-10] MEDS: MORPHINE 2 MG/1 ML SYRINGE IV PRN ×2 (05:28→19:36)
[2017-12-10 06:20] LABS: Basophils % 0.2 % (0.0-0.8); Eosinophils # 0.1 10*3/uL (0.0-0.87); Eosinophils % 0.9 % (0.00-10.9); Hematocrit 24.2 VOL% (35.7-47.0); Hemoglobin 7.4 GM/DL (12.0-16.0); Immature Granulocytes % 0.7 %; Immature Granulocytes Absolute 0.04 #; Lymphocytes # 0.8 10*3/uL (1.4-4.0); Lymphocytes % 14.5 % (21.3-54.2); Mean Corpuscular HGB Conc 30.6 GM/DL (32-36); Mean Corpuscular Hemoglobin 27 PG (27-34); Mean Corpuscular Volume 88.6 FL (87-102); Mean Platelet Volume 11.3 FL (9.6-12.0); Monocytes # 0.7 10*3/uL (0.11-0.8); Neutrophils # 3.8 10*3/uL (1.4-7.4); Neutrophils % 70.7 % (38.7-73.9); Platelet Count 217 T/CUMM (130-400); Red Blood Count 2.73 MC/CUMM (3.8-5.5); Red Cell Distribution Width 20.2 % (9.3-17.3); White Blood Count 5.4 T/CUMM (4-12)
[2017-12-10 06:54] LABS: Calcium 7.5 MG/DL (8.5-10.1); Osmolality,Calculated 284.1 MOS/KG (273-304); Potassium 4.2 MMOL/L (3.5-5.1)
[2017-12-10] MEDS: CALCIUM ACETATE 667 MG CAPSULE PO SCH ×3 (10:03→19:25)
[2017-12-10] MEDS: CARVEDILOL 6.25 MG TABLET PO SCH ×2 (10:04→21:40)
[2017-12-10] MEDS: ALPRAZolam 0.5 MG TABLET PO SCH ×2 (10:05→21:39)
[2017-12-10] MEDS: PANTOPRAZOLE 40 MG TABLET PO SCH (10:05)
[2017-12-10] MEDS ORDERED: CEFEPIME 1,000 MG in SYRINGE 1 EACH IV ONE (14:30)
[2017-12-10] MEDS ORDERED: ASPIRIN CHEW 81 MG TABLET PO ONE ×2 (14:59→15:58)
[2017-12-10] MEDS ORDERED: CEFEPIME 1,000 MG in SODIUM CHLORIDE 0.9% 100 ML IV ONE (15:00)
[2017-12-10] MEDS: QUEtiapine 100 MG TABLET PO SCH (21:40)
[2017-12-11] MEDS: CARVEDILOL 6.25 MG TABLET PO SCH ×2 (09:00→21:02)
[2017-12-11] MEDS: CALCIUM ACETATE 667 MG CAPSULE PO SCH ×3 (09:00→17:02)
[2017-12-11] MEDS ORDERED: CHLORHEXIDINE 4% SOLN 118 ML BOTTLE TOP ONE (09:00)
[2017-12-11] MEDS: PANTOPRAZOLE 40 MG TABLET PO SCH (09:01)
[2017-12-11] MEDS: ALPRAZolam 0.5 MG TABLET PO SCH ×2 (09:01→21:02)
[2017-12-11] MEDS: SODIUM HYPOCHLORITE 0.25% IRRIG 473 ML BOTTLE TOP SCH (10:10)
[2017-12-11] MEDS: ACETAMINOPHEN 325 MG TABLET PO PRN ×2 (10:30→17:00)
[2017-12-11] MEDS: SILVER SULFADIAZINE 1% CREAM 25 GM TUBE TOP SCH (11:47)
[2017-12-11] MEDS: QUEtiapine 100 MG TABLET PO SCH (21:02)
[2017-12-11] MEDS: MORPHINE 2 MG/1 ML SYRINGE IV PRN (21:42)
[2017-12-12 05:30] LABS: Basophils % 0.2 % (0.0-0.8); Eosinophils # 0.1 10*3/uL (0.0-0.87); Hematocrit 24.1 VOL% (35.7-47.0); Hemoglobin 7.4 GM/DL (12.0-16.0); Immature Granulocytes Absolute 0.06 #; Lymphocytes # 1.3 10*3/uL (1.4-4.0); Lymphocytes % 20.9 % (21.3-54.2); Mean Corpuscular HGB Conc 30.7 GM/DL (32-36); Mean Corpuscular Hemoglobin 27 PG (27-34); Mean Platelet Volume 10.7 FL (9.6-12.0); Monocytes # 0.9 10*3/uL (0.11-0.8); Monocytes % 14.8 % (1.7-12.7); Neutrophils # 3.9 10*3/uL (1.4-7.4); Neutrophils % 62.1 % (38.7-73.9); Platelet Count 189 T/CUMM (130-400); Red Blood Count 2.74 MC/CUMM (3.8-5.5); Red Cell Distribution Width 20.3 % (9.3-17.3); White Blood Count 6.2 T/CUMM (4-12)
[2017-12-12 05:45] LABS: INR 1.1; PT Patient Result 11.7 SECS; Partial Thromboplastin Time 32.2 SECS (0-40)
[2017-12-12 05:55] LABS: Albumin 2.2 G/DL (3.4-5.0); Bilirubin,Total 0.7 MG/DL (0.2-1.0); Calcium 7.8 MG/DL (8.5-10.1)
[2017-12-12] MEDS: CALCIUM ACETATE 667 MG CAPSULE PO SCH ×3 (10:14→17:23)
[2017-12-12] MEDS: CARVEDILOL 6.25 MG TABLET PO SCH ×2 (10:14→20:53)
[2017-12-12] MEDS: PANTOPRAZOLE 40 MG TABLET PO SCH (10:15)
[2017-12-12] MEDS: ALPRAZolam 0.5 MG TABLET PO SCH ×2 (10:15→20:53)
[2017-12-12] MEDS: MORPHINE 2 MG/1 ML SYRINGE IV PRN (13:48)
[2017-12-12] MEDS: SODIUM HYPOCHLORITE 0.25% IRRIG 473 ML BOTTLE TOP SCH (15:30)
[2017-12-12] MEDS: SILVER SULFADIAZINE 1% CREAM 25 GM TUBE TOP SCH (15:30)
[2017-12-12] MEDS: QUEtiapine 100 MG TABLET PO SCH (20:53)
[2017-12-13] MEDS: ALPRAZolam 0.5 MG TABLET PO SCH ×2 (08:37→21:01)
[2017-12-13] MEDS: CARVEDILOL 6.25 MG TABLET PO SCH ×2 (08:38→21:05)
[2017-12-13] MEDS: PANTOPRAZOLE 40 MG TABLET PO SCH (08:38)
[2017-12-13] MEDS: CALCIUM ACETATE 667 MG CAPSULE PO SCH ×3 (08:38→17:30)
[2017-12-13] MEDS: SILVER SULFADIAZINE 1% CREAM 400 GM JAR TOP SCH (10:20)
[2017-12-13] MEDS: SODIUM HYPOCHLORITE 0.25% IRRIG 473 ML BOTTLE TOP SCH (10:20)
[2017-12-13] MEDS: CEFEPIME 1,000 MG in SYRINGE 1 EACH IV PRN (17:30)
[2017-12-13] MEDS: QUEtiapine 100 MG TABLET PO SCH (21:01)
[2017-12-13] MEDS ORDERED: KETOROLAC 30 MG/1 ML VIAL IV ONE (21:37)
[2017-12-13] MEDS: SILVER SULFADIAZINE 1% CREAM 25 GM TUBE TOP SCH (22:33)
[2017-12-14] MEDS: CALCIUM ACETATE 667 MG CAPSULE PO SCH ×3 (09:46→18:23)
[2017-12-14] MEDS: PANTOPRAZOLE 40 MG TABLET PO SCH (09:46)
[2017-12-14] MEDS: ALPRAZolam 0.5 MG TABLET PO SCH ×2 (09:47→21:04)
[2017-12-14] MEDS: CARVEDILOL 6.25 MG TABLET PO SCH (09:47)
[2017-12-14] MEDS: CEFEPIME 1,000 MG in SYRINGE 1 EACH IV PRN (13:37)
[2017-12-14] MEDS: SILVER SULFADIAZINE 1% CREAM 400 GM JAR TOP SCH (15:05)
[2017-12-14] MEDS: SODIUM HYPOCHLORITE 0.25% IRRIG 473 ML BOTTLE TOP SCH (15:05)
[2017-12-14] MEDS: QUEtiapine 100 MG TABLET PO SCH (21:04)
[2017-12-14] MEDS: METOPROLOL SUCCINATE XL 25 MG TABLET PO SCH (21:50)
[2017-12-15] MEDS: ALPRAZolam 0.5 MG TABLET PO SCH ×2 (08:41→21:09)
[2017-12-15] MEDS: CALCIUM ACETATE 667 MG CAPSULE PO SCH ×4 (08:41→17:31)
[2017-12-15] MEDS: METOPROLOL SUCCINATE XL 25 MG TABLET PO SCH ×3 (08:42→21:13)
[2017-12-15] MEDS: PANTOPRAZOLE 40 MG TABLET PO SCH (08:42)
[2017-12-15 11:18] LABS: Hematocrit 24.9 VOL% (35.7-47.0); Hemoglobin 7.7 GM/DL (12.0-16.0)
[2017-12-15] MEDS ORDERED: SODIUM CHLORIDE 0.9% 1,000 ML IV PRN (12:57)
[2017-12-15] MEDS: SODIUM HYPOCHLORITE 0.25% IRRIG 473 ML BOTTLE TOP SCH (18:12)
[2017-12-15] MEDS: SILVER SULFADIAZINE 1% CREAM 400 GM JAR TOP SCH (18:12)
[2017-12-15] MEDS: QUEtiapine 100 MG TABLET PO SCH (21:09)
[2017-12-16] MEDS: ALPRAZolam 0.5 MG TABLET PO SCH ×2 (08:28→20:19)
[2017-12-16] MEDS: PANTOPRAZOLE 40 MG TABLET PO SCH (08:28)
[2017-12-16] MEDS: CALCIUM ACETATE 667 MG CAPSULE PO SCH ×3 (08:28→18:03)
[2017-12-16] MEDS: METOPROLOL SUCCINATE XL 25 MG TABLET PO SCH ×2 (09:22→20:21)
[2017-12-16] MEDS ORDERED: TUBERCULIN SKIN TEST 0.1 ML SYRINGE INTRADERM ONE (15:00)
[2017-12-16] MEDS: QUEtiapine 100 MG TABLET PO SCH (20:19)
[2017-12-16] MEDS: SILVER SULFADIAZINE 1% CREAM 400 GM JAR TOP SCH (21:23)
[2017-12-16] MEDS: SODIUM HYPOCHLORITE 0.25% IRRIG 473 ML BOTTLE TOP SCH (21:23)
[2017-12-17] MEDS: ALPRAZolam 0.5 MG TABLET PO SCH (08:55)
[2017-12-17] MEDS: CALCIUM ACETATE 667 MG CAPSULE PO SCH (09:12)
[2017-12-17] MEDS: PANTOPRAZOLE 40 MG TABLET PO SCH (09:12)
[2017-12-17] MEDS: METOPROLOL SUCCINATE XL 25 MG TABLET PO SCH (09:13)
[2017-12-17 11:15] VITALS: BP 116/60
== END 2017-12-17 13:15 | disposition home health service (06) | DRG 862 ==
LOC: EDUNIT# → EDBD → N.EDINP 14:11 → N.ED 14:11 → SUATTDRO 17:26 → N.3E 18:32 → SUATTDRO 12-10 16:05
PROVIDERS: ADMIT Hospitalist; ATTEND Internal Medicine

== ENCOUNTER 2018-01-21 17:00 | Inpatient (IN) ==
[2018-01-21 18:15] LABS: Basophils % 0.5 % (0.0-0.8); Eosinophils # 0.2 10*3/uL (0.0-0.87); Eosinophils % 1.9 % (0.00-10.9); Hematocrit 29.6 VOL% (35.7-47.0); Immature Granulocytes % 0.8 %; Immature Granulocytes Absolute 0.06 #; Lymphocytes # 1.6 10*3/uL (1.4-4.0); Lymphocytes % 20.6 % (21.3-54.2); Mean Corpuscular HGB Conc 30.4 GM/DL (32-36); Mean Corpuscular Hemoglobin 29 PG (27-34); Mean Corpuscular Volume 96.1 FL (87-102); Mean Platelet Volume 10.6 FL (9.6-12.0); Monocytes # 0.8 10*3/uL (0.11-0.8); Monocytes % 9.6 % (1.7-12.7); NRBC # 0.04 10*3/uL; Neutrophils # 5.2 10*3/uL (1.4-7.4); Neutrophils % 66.6 % (38.7-73.9); Platelet Count 190 T/CUMM (130-400); Red Blood Count 3.08 MC/CUMM (3.8-5.5); Red Cell Distribution Width 23.7 % (9.3-17.3); White Blood Count 7.8 T/CUMM (4-12)
[2018-01-21 18:52] LABS: Albumin 3.4 G/DL (3.4-5.0); Bilirubin,Total 0.4 MG/DL (0.2-1.0); Calcium 8.1 MG/DL (8.5-10.1); Osmolality,Calculated 291.2 MOS/KG (273-304); Potassium 4.3 MMOL/L (3.5-5.1); Total Protein 7.8 G/DL (6.4-8.3)
[2018-01-21 19:51] LABS: Anisocytosis 1+; Macrocytosis 2+; Platelet Estimate Normal
[2018-01-21] MEDS: ALPRAZolam 0.5 MG TABLET PO SCH (23:49)
[2018-01-21] MEDS: DOCUSATE SODIUM 100 MG CAPSULE PO SCH (23:49)
[2018-01-21] MEDS: METOPROLOL SUCCINATE XL 25 MG TABLET PO SCH (23:49)
[2018-01-22 05:45] LABS: Basophils % 0.3 % (0.0-0.8); Eosinophils # 0.2 10*3/uL (0.0-0.87); Eosinophils % 2.6 % (0.00-10.9); Hematocrit 27.8 VOL% (35.7-47.0); Hemoglobin 8.4 GM/DL (12.0-16.0); Immature Granulocytes % 0.9 %; Immature Granulocytes Absolute 0.07 #; Lymphocytes # 1.3 10*3/uL (1.4-4.0); Lymphocytes % 17.1 % (21.3-54.2); Mean Corpuscular HGB Conc 30.2 GM/DL (32-36); Mean Corpuscular Hemoglobin 29 PG (27-34); Mean Corpuscular Volume 96.2 FL (87-102); Mean Platelet Volume 10.6 FL (9.6-12.0); Monocytes # 0.6 10*3/uL (0.11-0.8); Monocytes % 7.5 % (1.7-12.7); NRBC # 0.03 10*3/uL; Neutrophils # 5.5 10*3/uL (1.4-7.4); Neutrophils % 71.6 % (38.7-73.9); Platelet Count 176 T/CUMM (130-400); Red Blood Count 2.89 MC/CUMM (3.8-5.5); Red Cell Distribution Width 23.9 % (9.3-17.3); White Blood Count 7.7 T/CUMM (4-12)
[2018-01-22 06:00] LABS: Calcium 7.7 MG/DL (8.5-10.1); Osmolality,Calculated 293.2 MOS/KG (273-304); Potassium 3.9 MMOL/L (3.5-5.1)
[2018-01-22 06:04] LABS: Anisocytosis 1+; Hypochromasia 1+
[2018-01-22 06:05] LABS: Macrocytosis 1+; Ovalocytes Slight; Polychromasia Slight
[2018-01-22 06:06] LABS: Platelet Estimate Adequate
[2018-01-22] MEDS: DOCUSATE SODIUM 100 MG CAPSULE PO SCH ×2 (08:32→21:26)
[2018-01-22] MEDS: PANTOPRAZOLE 40 MG TABLET PO SCH (08:32)
[2018-01-22] MEDS: METOPROLOL SUCCINATE XL 25 MG TABLET PO SCH ×2 (08:32→21:25)
[2018-01-22] MEDS: CINACALCET 30 MG TABLET PO SCH (08:32)
[2018-01-22] MEDS: ALPRAZolam 0.5 MG TABLET PO SCH ×2 (08:32→21:25)
[2018-01-22] MEDS: SEVELAMER CARBONATE 800 MG TABLET PO SCH ×4 (08:32→18:12)
[2018-01-22] MEDS: SODIUM HYPOCHLORITE 0.25% IRRIG 473 ML BOTTLE TOP SCH (17:53)
[2018-01-22] MEDS: SILVER SULFADIAZINE 1% CREAM 25 GM TUBE TOP SCH (17:54)
[2018-01-22] MEDS: LIDOCAINE/PRILOCAINE CREAM 5 GM TUBE TOP SCH (17:54)
[2018-01-23] MEDS: SEVELAMER CARBONATE 800 MG TABLET PO SCH ×2 (10:04→15:03)
[2018-01-23 11:42] VITALS: BP 124/84
[2018-01-23] MEDS: DOCUSATE SODIUM 100 MG CAPSULE PO SCH (11:55)
[2018-01-23] MEDS: PANTOPRAZOLE 40 MG TABLET PO SCH (11:55)
[2018-01-23] MEDS: CINACALCET 30 MG TABLET PO SCH (13:14)
[2018-01-23] MEDS: METOPROLOL SUCCINATE XL 25 MG TABLET PO SCH (13:14)
[2018-01-23] MEDS: ALPRAZolam 0.5 MG TABLET PO SCH (13:14)
[2018-01-23] MEDS: SODIUM HYPOCHLORITE 0.25% IRRIG 473 ML BOTTLE TOP SCH (15:04)
[2018-01-23] MEDS: SILVER SULFADIAZINE 1% CREAM 25 GM TUBE TOP SCH (15:04)
[2018-01-23] MEDS: LIDOCAINE/PRILOCAINE CREAM 5 GM TUBE TOP SCH (17:35)
== END 2018-01-23 17:30 | DRG 813 ==
LOC: EDBD → EDUNIT# → N.ED 17:00 → N.EDINP 19:40 → N.4E 22:56
PROVIDERS: ADMIT Family Medicine; ATTEND Family Medicine

== ENCOUNTER 2018-03-21 10:58 | Inpatient (IN) ==
[~2018-03-21 10:58] MED LIST: EPINEPHrine 1 MG/ML VIAL ONE; SODIUM BICARBONATE 50 MEQ/50 ML SYRINGE IV ONE
[2018-03-21] MEDS ORDERED: VANCOMYCIN INJ 1,000 MG in SODIUM CHLORIDE 0.9% 250 ML IV STA (11:38)
[2018-03-21] MEDS ORDERED: MEROPENEM 1,000 MG in SODIUM CHLORIDE 0.9% 100 ML IV STA (11:38)
[2018-03-21 13:05] LABS: Basophils % 0.1 % (0.0-0.8); Hematocrit 36.8 VOL% (35.7-47.0); Hemoglobin 11.6 GM/DL (12.0-16.0); Immature Granulocytes % 1.1 %; Lymphocytes # 0.9 10*3/uL (1.4-4.0); Lymphocytes % 5.3 % (21.3-54.2); Mean Corpuscular HGB Conc 31.5 GM/DL (32-36); Mean Corpuscular Hemoglobin 27 PG (27-34); Mean Corpuscular Volume 86.8 FL (87-102); Mean Platelet Volume 11.5 FL (9.6-12.0); Monocytes # 1.2 10*3/uL (0.11-0.8); Monocytes % 6.7 % (1.7-12.7); NRBC # 0.06 10*3/uL; Neutrophils # 15.5 10*3/uL (1.4-7.4); Neutrophils % 86.8 % (38.7-73.9); Platelet Count 154 T/CUMM (130-400); Red Blood Count 4.24 MC/CUMM (3.8-5.5); Red Cell Distribution Width 20.8 % (9.3-17.3); White Blood Count 17.9 T/CUMM (4-12)
[2018-03-21 13:39] LABS: Albumin 3.4 G/DL (3.4-5.0); Bilirubin,Total 2.5 MG/DL (0.2-1.0); Calcium 9.1 MG/DL (8.5-10.1); Osmolality,Calculated 294.5 MOS/KG (273-304); Total Protein 8.4 G/DL (6.4-8.3)
[2018-03-21 13:47] LABS: Potassium 6.2 MMOL/L (3.5-5.1); Troponin I Only 0.701 NG/ML (0.00-0.045)
[2018-03-21 13:51] LABS: Lactic Acid 10.8 MMOL/L (0.4-2.0)
[2018-03-21 14:13] LABS: Sedimentation Rate-Westergren 30 MM/HR (0-20)
[2018-03-21] MEDS ORDERED: PIPERACILLIN/TAZOBACTAM 3,375 MG in SODIUM CHLORIDE 0.9% 100 ML IV SCH (14:30)
[2018-03-21] MEDS ORDERED: DEXTROSE 50% 25 GM/50 ML VIAL IV STA (14:38)
[2018-03-21] MEDS ORDERED: INSULIN REGULAR 100 UNIT/ML IV STA (14:38)
[2018-03-21] MEDS ORDERED: ALBUTEROL 2.5 MG/3 ML NEB RESP TX PRN (14:56)
[2018-03-21] MEDS ORDERED: LACTULOSE 20 GM/30 ML UDCUP PO PRN (14:56)
[2018-03-21] MEDS ORDERED: SODIUM CHLORIDE 0.9% 2,700 ML IV ONE (15:08)
[2018-03-21 15:26] LABS: INR 2.3
[2018-03-21] MEDS ORDERED: GENTAMICIN INJ 120 MG in PREMIX 1 EACH IV PRN (15:30)
[2018-03-21] MEDS ORDERED: VANCOMYCIN INJ 750 MG in SODIUM CHLORIDE 0.9% 250 ML IV PRN (15:30)
[2018-03-21] MEDS ORDERED: SODIUM CHLORIDE 0.9% 1,000 ML IV SCH (15:30)
[2018-03-21 15:33] LABS: PT Patient Result 23.7 SECS
[2018-03-21] MEDS ORDERED: LACTULOSE 20 GM/30 ML UDCUP PO SCH (16:30)
[2018-03-21] MEDS ORDERED: SODIUM BICARBONATE 50 MEQ/50 ML SYRINGE IV ONE ×2 (16:39→16:40)
[2018-03-21] MEDS ORDERED: GENTAMICIN INJ 180 MG in SODIUM CHLORIDE 0.9% 100 ML IV ONE (17:00)
[2018-03-21 17:06] LABS: ABG HCO3 16.4 MMOL/L (20-26); ABG Oxygen Saturation 96.2 % (95-100); ABG PO2 98.7 MM HG (80-95)
[2018-03-21] MEDS ORDERED: VANCOMYCIN INJ 1,000 MG in SODIUM CHLORIDE 0.9% 250 ML IV ONE (18:00)
[2018-03-21] MEDS: SEVELAMER CARBONATE 800 MG TABLET PO SCH (18:31)
[2018-03-21] MEDS: PANTOPRAZOLE 40 MG VIAL IV SCH (18:32)
[2018-03-21] MEDS ORDERED: DEXTROSE 50% 25 GM/50 ML VIAL IV PRN (19:38)
[2018-03-21] MEDS: METOPROLOL TARTRATE 25 MG TABLET PO SCH (20:27)
[2018-03-21] MEDS: MORPHINE 4 MG/1 ML VIAL IV PRN ×2 (20:28→23:26)
[2018-03-21 21:28] LABS: Calcium 8.8 MG/DL (8.5-10.1); Osmolality,Calculated 284.8 MOS/KG (273-304); Potassium 3.7 MMOL/L (3.5-5.1)
[2018-03-21 21:43] LABS: Lactic Acid 5.1 MMOL/L (0.4-2.0)
[2018-03-21] MEDS: CINACALCET 30 MG TABLET PO SCH (21:54)
[2018-03-21] MEDS ORDERED: DEXTROSE 5% 1,000 ML IV SCH (23:30)
[2018-03-22] MEDS: DEXTROSE 5% NACL 0.9% 1,000 ML IV SCH ×2 (01:28→09:30)
[2018-03-22 03:41] LABS: Basophils % 0.1 % (0.0-0.8); Hematocrit 30.7 VOL% (35.7-47.0); Immature Granulocytes % 1.1 %; Immature Granulocytes Absolute 0.14 #; Lymphocytes # 0.9 10*3/uL (1.4-4.0); Lymphocytes % 6.6 % (21.3-54.2); Mean Corpuscular HGB Conc 32.6 GM/DL (32-36); Mean Corpuscular Hemoglobin 28 PG (27-34); Mean Corpuscular Volume 84.8 FL (87-102); Mean Platelet Volume 10.1 FL (9.6-12.0); Monocytes # 0.9 10*3/uL (0.11-0.8); Monocytes % 6.4 % (1.7-12.7); NRBC # 0.07 10*3/uL; Neutrophils # 11.4 10*3/uL (1.4-7.4); Neutrophils % 85.8 % (38.7-73.9); Platelet Count 101 T/CUMM (130-400); Red Blood Count 3.62 MC/CUMM (3.8-5.5); Red Cell Distribution Width 19.9 % (9.3-17.3); White Blood Count 13.3 T/CUMM (4-12)
[2018-03-22 03:53] LABS: INR 2.4
[2018-03-22 03:54] LABS: PT Patient Result 24.6 SECS
[2018-03-22 04:16] LABS: Bilirubin,Total 2.6 MG/DL (0.2-1.0); Calcium 8.8 MG/DL (8.5-10.1); Potassium 4.2 MMOL/L (3.5-5.1); Total Protein 6.6 G/DL (6.4-8.3)
[2018-03-22 04:16] LABS: ABG HCO3 16.4 MMOL/L (20-26); ABG Oxygen Saturation 87.2 % (95-100); ABG PCO2 29.9 MM HG (35-48); ABG PH 7.356 (7.35-7.45); ABG PO2 63.5 MM HG (80-95); ABG TCO2 17.3 MMOL/L (23-27)
[2018-03-22] MEDS: SEVELAMER CARBONATE 800 MG TABLET PO SCH ×3 (08:00→17:00)
[2018-03-22] MEDS: MORPHINE 4 MG/1 ML VIAL IV PRN ×2 (08:20→12:15)
[2018-03-22] MEDS ORDERED: GENTAMICIN INJ 120 MG in PREMIX 1 EACH IV ONE (09:00)
[2018-03-22] MEDS: METOPROLOL TARTRATE 25 MG TABLET PO SCH ×2 (09:00→20:38)
[2018-03-22] MEDS ORDERED: VANCOMYCIN INJ 750 MG in SODIUM CHLORIDE 0.9% 250 ML IV ONE (10:00)
[2018-03-22] MEDS: SODIUM CHLORIDE 0.45% 1,000 ML IV SCH (13:30)
[2018-03-22] MEDS: PANTOPRAZOLE 40 MG VIAL IV SCH (16:25)
[2018-03-22] MEDS: MEROPENEM 500 MG in SYRINGE 1 EACH IV SCH (18:00)
[2018-03-22] MEDS: CINACALCET 30 MG TABLET PO SCH (20:38)
[2018-03-23] MEDS: MORPHINE 4 MG/1 ML VIAL IV PRN (00:36)
[2018-03-23 03:32] LABS: Basophils % 0.1 % (0.0-0.8); Eosinophils % 0.1 % (0.00-10.9); Hematocrit 33.7 VOL% (35.7-47.0); Hemoglobin 10.8 GM/DL (12.0-16.0); Immature Granulocytes % 1.2 %; Immature Granulocytes Absolute 0.16 #; Lymphocytes # 1.2 10*3/uL (1.4-4.0); Lymphocytes % 8.5 % (21.3-54.2); Mean Corpuscular Hemoglobin 27 PG (27-34); Mean Corpuscular Volume 84.9 FL (87-102); Mean Platelet Volume 11.4 FL (9.6-12.0); Monocytes # 0.9 10*3/uL (0.11-0.8); Monocytes % 6.8 % (1.7-12.7); Neutrophils # 11.4 10*3/uL (1.4-7.4); Neutrophils % 83.3 % (38.7-73.9); Platelet Count 102 T/CUMM (130-400); Red Blood Count 3.97 MC/CUMM (3.8-5.5); Red Cell Distribution Width 20.5 % (9.3-17.3); White Blood Count 13.7 T/CUMM (4-12)
[2018-03-23 03:43] LABS: Ammonia < 10 UMOL/L (11-32)
[2018-03-23 03:46] LABS: INR 1.9; PT Patient Result 19.7 SECS
[2018-03-23 03:58] LABS: Calcium 8.8 MG/DL (8.5-10.1); Potassium 4.2 MMOL/L (3.5-5.1)
[2018-03-23 04:11] LABS: ABG Base Excess -6.5 MMOL/L (-2.5-2.5); ABG HCO3 18.9 MMOL/L (20-26); ABG Oxygen Saturation 93.6 % (95-100); ABG PCO2 37.4 MM HG (35-48); ABG PH 7.322 (7.35-7.45); ABG PO2 80.6 MM HG (80-95); ABG TCO2 20.1 MMOL/L (23-27); Allen Test Positive
[2018-03-23 04:27] LABS: Alanine Aminotransferase 573 U/L (13-56); Albumin 3.1 G/DL (3.4-5.0); Alkaline Phosphatase 287 U/L (45-117); Aspartate Amino Transferase 884 U/L (0-37); Bilirubin,Indirect 0.6 MG/DL (0.0-1.0); Total Protein 6.9 G/DL (6.4-8.3)
[2018-03-23 04:59] LABS: Hypochromasia 1+; Ovalocytes Slight; Platelet Estimate Decreased
[2018-03-23] MEDS: METOPROLOL TARTRATE 25 MG TABLET PO SCH ×2 (10:42→20:44)
[2018-03-23] MEDS: SEVELAMER CARBONATE 800 MG TABLET PO SCH ×3 (10:44→17:54)
[2018-03-23] MEDS: PANTOPRAZOLE 40 MG VIAL IV SCH (15:54)
[2018-03-23] MEDS: SODIUM CHLORIDE 0.45% 1,000 ML IV SCH (16:58)
[2018-03-23] MEDS: MEROPENEM 500 MG in SYRINGE 1 EACH IV SCH (17:56)
[2018-03-23] MEDS: CINACALCET 30 MG TABLET PO SCH (20:44)
[2018-03-24 04:28] LABS: Basophils % 0.1 % (0.0-0.8); Eosinophils # 0.1 10*3/uL (0.0-0.87); Eosinophils % 0.7 % (0.00-10.9); Hematocrit 31.9 VOL% (35.7-47.0); Hemoglobin 10.4 GM/DL (12.0-16.0); Immature Granulocytes % 1.3 %; Immature Granulocytes Absolute 0.16 #; Lymphocytes # 1.4 10*3/uL (1.4-4.0); Lymphocytes % 11.7 % (21.3-54.2); Mean Corpuscular HGB Conc 32.6 GM/DL (32-36); Mean Corpuscular Hemoglobin 27 PG (27-34); Mean Corpuscular Volume 82.9 FL (87-102); Monocytes % 8.1 % (1.7-12.7); NRBC # 0.33 10*3/uL; Neutrophils # 9.6 10*3/uL (1.4-7.4); Neutrophils % 78.1 % (38.7-73.9); Red Blood Count 3.85 MC/CUMM (3.8-5.5); Red Cell Distribution Width 20.5 % (9.3-17.3); White Blood Count 12.3 T/CUMM (4-12)
[2018-03-24 04:30] LABS: Platelet Count 89 T/CUMM (130-400)
[2018-03-24 04:38] LABS: INR 1.7; PT Patient Result 17.7 SECS
[2018-03-24 04:55] LABS: Albumin 2.8 G/DL (3.4-5.0); Bilirubin,Direct 0.78 MG/DL (0.0-0.20); Bilirubin,Indirect 0.6 MG/DL (0.0-1.0); Bilirubin,Total 1.4 MG/DL (0.2-1.0); Calcium 8.6 MG/DL (8.5-10.1); Gentamicin,Random 3.6 UG/ML; Osmolality,Calculated 298.8 MOS/KG (273-304); Potassium 4.2 MMOL/L (3.5-5.1); Total Protein 6.7 G/DL (6.4-8.3); Vancomycin,Random 22.2 UG/ML
[2018-03-24 05:16] LABS: Hypochromasia 1+; Target Cells Slight
[2018-03-24 05:17] LABS: Anisocytosis 1+; Microcytosis 1+; Ovalocytes Slight; Polychromasia Slight
[2018-03-24 05:18] LABS: Platelet Estimate Decreased
[2018-03-24] MEDS: MORPHINE 4 MG/1 ML VIAL IV PRN ×3 (05:37→12:07)
[2018-03-24] MEDS: SODIUM CHLORIDE 0.45% 1,000 ML IV SCH ×2 (05:39→13:41)
[2018-03-24] MEDS: SEVELAMER CARBONATE 800 MG TABLET PO SCH ×4 (08:15→16:27)
[2018-03-24] MEDS: METOPROLOL TARTRATE 25 MG TABLET PO SCH ×2 (08:28→22:29)
[2018-03-24] MEDS ORDERED: SKIN HEALING OINT (AQUAPHOR) 50 GM TUBE TOP PRN (08:36)
[2018-03-24] MEDS ORDERED: SODIUM THIOSULFATE 12.5 GM/50 ML VIAL IV SCH (09:00)
[2018-03-24] MEDS ORDERED: ACETIC ACID 0.25% IRRIGATION 1,000 ML BOTTLE IRRIG SCH (09:00)
[2018-03-24] MEDS ORDERED: SODIUM CHLORIDE 0.9% IV ONE (16:00)
[2018-03-24] MEDS ORDERED: VANCOMYCIN INJ 750 MG in SODIUM CHLORIDE 0.9% 250 ML IV ONE (16:00)
[2018-03-24] MEDS ORDERED: TOBRAMYCIN IV ONE (16:00)
[2018-03-24] MEDS: PANTOPRAZOLE 40 MG VIAL IV SCH (16:22)
[2018-03-24] MEDS ORDERED: TUBERCULIN SKIN TEST 0.1 ML SYRINGE INTRADERM ONE (17:07)
[2018-03-24] MEDS: MEROPENEM 500 MG in SYRINGE 1 EACH IV SCH (18:21)
[2018-03-24] MEDS ORDERED: AMITRIPTYLINE 25 MG TABLET PO SCH (21:00)
[2018-03-24] MEDS: ONDANSETRON 4 MG/2 ML VIAL IV PRN (21:19)
[2018-03-24] MEDS: CINACALCET 30 MG TABLET PO SCH (22:29)
[2018-03-25] MEDS: ACETAMINOPHEN 325 MG TABLET PO PRN ×2 (02:26→09:56)
[2018-03-25] MEDS: ONDANSETRON 4 MG/2 ML VIAL IV PRN (06:50)
[2018-03-25 06:55] LABS: Basophils % 0.1 % (0.0-0.8); Eosinophils % 0.2 % (0.00-10.9); Hematocrit 33.3 VOL% (35.7-47.0); Hemoglobin 10.8 GM/DL (12.0-16.0); Immature Granulocytes % 2.3 %; Immature Granulocytes Absolute 0.34 #; Lymphocytes # 1.8 10*3/uL (1.4-4.0); Lymphocytes % 11.7 % (21.3-54.2); Mean Corpuscular HGB Conc 32.4 GM/DL (32-36); Mean Corpuscular Hemoglobin 27 PG (27-34); Mean Corpuscular Volume 84.5 FL (87-102); Monocytes # 1.4 10*3/uL (0.11-0.8); Monocytes % 9.4 % (1.7-12.7); NRBC # 0.86 10*3/uL; Neutrophils # 11.5 10*3/uL (1.4-7.4); Neutrophils % 76.3 % (38.7-73.9); Platelet Count 84 T/CUMM (130-400); Red Blood Count 3.94 MC/CUMM (3.8-5.5); Red Cell Distribution Width 21.3 % (9.3-17.3)
[2018-03-25 07:00] LABS: INR 1.9; PT Patient Result 19.4 SECS
[2018-03-25 07:16] LABS: Anisocytosis 1+; Hypochromasia 1+; Microcytosis 1+
[2018-03-25 07:17] LABS: Polychromasia Slight; Target Cells Slight
[2018-03-25 07:18] LABS: Acanthocytes Few; Platelet Estimate Decreased
[2018-03-25 07:29] LABS: Calcium 8.7 MG/DL (8.5-10.1); Osmolality,Calculated 283.1 MOS/KG (273-304); Potassium 4.2 MMOL/L (3.5-5.1)
[2018-03-25] MEDS ORDERED: ACETIC ACID 0.25% IRRIGATION 1,000 ML BOTTLE IRRIG SCH (09:00)
[2018-03-25] MEDS: SEVELAMER CARBONATE 800 MG TABLET PO SCH ×4 (09:56→16:51)
[2018-03-25] MEDS: METOPROLOL TARTRATE 25 MG TABLET PO SCH (09:56)
[2018-03-25] MEDS: MORPHINE 4 MG/1 ML VIAL IV PRN (14:00)
[2018-03-25] MEDS ORDERED: PROMETHAZINE 25 MG TABLET PO PRN (14:46)
[2018-03-25] MEDS ORDERED: GABAPENTIN 300 MG CAPSULE PO SCH (15:00)
[2018-03-25] MEDS: PANTOPRAZOLE 40 MG VIAL IV SCH (16:44)
[2018-03-25] MEDS: SODIUM CHLORIDE 0.45% 1,000 ML IV SCH (16:45)
[2018-03-25 17:40] VITALS: BP 144/84
[2018-03-25] MEDS ORDERED: EPINEPHrine 1 MG/ML VIAL ONE (18:23)
[2018-03-26] MEDS ORDERED: TOBRAMYCIN INJ 100 MG in SODIUM CHLORIDE 0.9% 100 ML IV PRN (09:00)
== END 2018-03-25 18:46 | disposition expired | DRG 919 ==
LOC: EDBD → EDUNIT# → N.ED 10:58 → N.EDINP 14:56 → SUATTDRO 14:56 → N.ICU 15:24 → N.5E 03-24 18:11
PROVIDERS: ADMIT Internal Medicine; ATTEND Internal Medicine